=== PATIENT | female | born 1980 | race Two or more races ===

== ENCOUNTER 2019-12-17 16:22 | Inpatient (IN) | payer MEDICAID ==
[~2019-12-17] VITALS: Ht 154.9 cm; Wt 90.7 kg
[2019-12-17 19:22] VITALS: BP 127/82
--- NOTE | 2019-12-17 19:22 | NUR ---
RN MS ADMITTING NOTES RECEIVED PATIENT DIRECT TRANSFER FROM [facility] VIA [facility] WITH EMT, SAFELY TRANSFERRED TO ROOM 207-1, AWAKE ALERT AND ORIENTED X4 ,RESPIRATIONS EVEN AND UNLABORED WITH EQUAL RISE AND FALL OF CHEST, IV SITE TO LEFT HAND ,PER PATIENT HURTING HER, REMOVED NEW IV SITE INSERTED TO LEFT FA #22 G INTACT AND PATENT, OLD IV SITE REMOVED, NO S/S OF INFILTRATION, AT THIS TIME, PATIENT APPEARS COMFORTABLE, ORIENTED TO ROOM STAFF AND CALL LIGHT AND KEPT WITHIN REACH, SAFETY PRECAUTIONS IN PLACE, LOW BED AND LOCKED, ASSISTED TO RESTROOM AND BACK, BED ALARM IN PLACE, ORAL SUPPLIES PROVIDED, PER PATIENT DOES NOT HAVE AND SKIN ISSUES, BELONGINGS LIST COMPLETE. MD AWARE OF ADMISSION WILL FOLLOW UP WITH MD ORDERS, AT THIS TIME PATIENT REMAINS CALM AND COMFORTABLE WILL CONTINUE TO MONITOR.
[2019-12-17] MEDS ORDERED: IBUP-1957 PO (20:07)
[2019-12-17] MEDS ORDERED: Z GUARD REMEDY 2 OZ OINT TP PRN (20:30)
[2019-12-17] MEDS ORDERED: ACETAMINOPHEN 325 MG TABLET PO PRN (20:30)
[2019-12-17] MEDS ORDERED: MAGNESIUM HYDROXIDE 30 ML UDC PO PRN (20:30)
[2019-12-17] MEDS ORDERED: ZOLPIDEM TARTRATE 5 MG TABLET PO PRN (20:30)
[2019-12-17] MEDS: ONDANSETRON HCL/PF 4 MG/2 ML VIAL IVP PRN (20:47)
[2019-12-17] MEDS: KETOROLAC TROMETHAMINE INJ 30 MG/ML VIAL IV PRN (20:47)
--- NOTE | 2019-12-17 20:47 | NUR ---
rn ms notes patient complaint of pain to abdomen area, states 7/10 moaning, irritable, restless, requested for pain medication and zofran prn toradol given as ordered. prn zofran given as ordered. scanned medication didnt save. medications given as ordered, scanner switched.
[2019-12-17 21:59] LABS: CALCIUM, SERUM 8.1 mg/dL (8.5-10.1); CREATININE 0.5 mg/dL (0.6-1.3); POTASSIUM 3.8 mmol/L (3.5-5.1)
[2019-12-17 22:05] LABS: BASOPHILS % (AUTO) 0.3 % (0.0-2.0); HEMATOCRIT 34 % (33-45); LYMPHOCYTES # (AUTO) 2.1 /CMM (0.8-4.8); LYMPHOCYTES % (AUTO) 29.5 % (20.0-44.0); MEAN CORPUSCULAR HGB CONC 33 g/dl (31.0-36.0); MEAN CORPUSCULAR VOLUME 87 fL (82-100); MONOCYTES # (AUTO) 0.4 /CMM (0.1-1.30); MONOCYTES % (AUTO) 5.7 % (2.0-12.0); NEUTROPHILS # (AUTO) 4.5 /CMM (1.8-8.9); NEUTROPHILS % (AUTO) 62.5 % (43.0-81.0); PLATELET COUNT (AUTO) 269 /CMM (150-450); RED BLOOD CELL COUNT(AUTO) 3.84 MIL/uL (4.0-5.2); WHITE BLOOD COUNT (AUTO) 7.2 K/uL (4.3-11.0)
[2019-12-17] MEDS: IV NS 0.9% 1,000 ML IV PRN (22:26)
[2019-12-17] MEDS ORDERED: DEXTROSE 50%-WATER 50 ML DISP.SYRIN IV PRN (23:30)
[2019-12-17] MEDS: HYDROMORPHONE 1 MG/1 ML DISP.SYRIN IV PRN (23:31)
--- NOTE | 2019-12-17 23:31 | NUR ---
rn ms notes patient complained of pain to abdomen area 8/10 and headache vs assessed wnl, 137/78,87,18,96%. facial grimacing and moaning present offered dilaudid patient agreed. prn given as ordered will continue to monitor for effectiveness, lights dimmed, room remains quiet.call light kept within reach.
[2019-12-17] MEDS: PANTOPRAZOLE 40 MG VIAL IV SCH (23:32)
[2019-12-17] MEDS: GEMFIBROZIL 600 MG TABLET PO SCH (23:36)
[2019-12-17] MEDS: ENOXAPARIN SODIUM 40 MG/0.4 ML DISP.SYRIN SQ SCH (23:40)
[2019-12-17] MEDS: BLOOD SUGAR DIAGNOSTIC 1 EACH STRIP IN SCH (23:42)
[2019-12-17] MEDS: INSULIN REGULAR, HUMAN 100 UNIT/ML 3 ML VIAL SQ PRN (23:51)
[2019-12-18] MEDS: KETOROLAC TROMETHAMINE INJ 30 MG/ML VIAL IV PRN ×2 (02:48→17:49)
--- NOTE | 2019-12-18 02:50 | NUR ---
rn ms notes patient complained of pain 9/10 to abdomen area, requested for pain medication , toradol prn given as ordered given will continue to monitor for effectiveness, vs wnl.
[2019-12-18] MEDS: HYDROMORPHONE 1 MG/1 ML DISP.SYRIN IV PRN ×4 (04:35→20:08)
--- NOTE | 2019-12-18 04:38 | NUR ---
RN MS NOTES PATIENT COMPLAINED OF PAIN TO ABDOMEN AREA 01/30, STATES PAIN ,NOTED GRASPING SITE, AND MOANING, REQUESTED FOR PAIN MEDICATION, DILAUDID OFFERED PATIENT AGREED, VS WNL. PRN DILAUDID GIVEN ORDERED, WILL CONTINUE TO MONITOR FOR EFFECTIVENESS.
[2019-12-18] MEDS: INSULIN REGULAR, HUMAN 100 UNIT/ML 3 ML VIAL SQ PRN ×2 (05:31→13:39)
[2019-12-18] MEDS: BLOOD SUGAR DIAGNOSTIC 1 EACH STRIP IN SCH ×4 (05:31→23:39)
[2019-12-18] MEDS: IV NS 0.9% 1,000 ML IV PRN ×2 (06:12→17:42)
[2019-12-18] MEDS: ONDANSETRON HCL/PF 4 MG/2 ML VIAL IVP PRN ×3 (06:12→19:54)
--- NOTE | 2019-12-18 06:15 | NUR ---
rn ms notes pt complained of feeling nausea, requested for zofran prn given as ordered will continue to monitor for effectiveness
--- NOTE | 2019-12-18 06:50 | NUR ---
RN MS CLOSING NOTES PATIENT IN BED AWAKE ALERT AND ORIENTED X4 ,RESPIRATIONS EVEN AND UNLABORED WITH EQUAL RISE AND FALL OF CHEST, IV SITE INSERTED TO LEFT FA #22 G INTACT AND PATENT, NO S/S OF INFILTRATION, AT THIS TIME, PATIENT APPEARS COMFORTABLE, CALL LIGHT KEPT WITHIN REACH, SAFETY PRECAUTIONS IN PLACE, LOW BED AND LOCKED, ASSISTED TO RESTROOM AND BACK, BED ALARM IN PLACE, ORAL SUPPLIES PROVIDED, PER PATIENT DENIES SKIN ISSUES, AT THIS TIME PATIENT REMAINS CALM AND COMFORTABLE WILL CONTINUE TO MONITOR AND ENDORSE TO NEXT SHIFT, REMAINS NPO. ALL DUE MEDS GIVEN. MRSA SWAB DONE, PAIN MEDICATION EFFECTIVE.
[2019-12-18 06:56] LABS: BASOPHILS % (AUTO) 0.5 % (0.0-2.0); EOSINOPHILS % (AUTO) 2.9 % (0.0-6.0); HEMATOCRIT 32 % (33-45); HEMOGLOBIN 10.4 g/dL (11.5-14.8); LYMPHOCYTES # (AUTO) 1.9 /CMM (0.8-4.8); LYMPHOCYTES % (AUTO) 37.7 % (20.0-44.0); MEAN CORPUSCULAR HGB CONC 33 g/dl (31.0-36.0); MEAN CORPUSCULAR VOLUME 87 fL (82-100); MONOCYTES # (AUTO) 0.4 /CMM (0.1-1.30); MONOCYTES % (AUTO) 7.7 % (2.0-12.0); NEUTROPHILS # (AUTO) 2.6 /CMM (1.8-8.9); NEUTROPHILS % (AUTO) 51.2 % (43.0-81.0); PLATELET COUNT (AUTO) 259 /CMM (150-450); RED BLOOD CELL COUNT(AUTO) 3.64 MIL/uL (4.0-5.2); WHITE BLOOD COUNT (AUTO) 5.1 K/uL (4.3-11.0)
[2019-12-18 07:32] LABS: CALCIUM, SERUM 7.5 mg/dL (8.5-10.1); CREATININE 0.5 mg/dL (0.6-1.3); MAGNESIUM 1.7 mg/dL (1.8-2.4); PHOSPHORUS 2.7 mg/dL (2.5-4.9); POTASSIUM 3.6 mmol/L (3.5-5.1)
--- NOTE | 2019-12-18 07:42 | NUR ---
RN NOTES RECEIVED PT ASLEEP, EASILY AROUSED, AO X4. PT TOLERATING RA, WITH NO ACUTE RESPIRATORY DISTRESS NOTED. PT REPORTED 6/10 PAIN WHEN ASKED. IVF NS AT 100ML/HR TO LFA G22, INTACT AND FLUID INFUSING WELL. PT KEPT COMFORTABLE. CALL LIGHT KEPT WITHIN REACH. PT'S BED IN LOWEST, LOCKED POSITION WITH SRX3. WILL CONTINUE PLAN OF CARE.
[2019-12-18] MEDS: HYDROCODONE/APAP 5/325MG 1 EACH TABLET PO PRN (07:57)
[2019-12-18 08:00] VITALS: BP 128/74
[2019-12-18] MEDS: GEMFIBROZIL 600 MG TABLET PO SCH ×2 (08:09→20:07)
--- NOTE | 2019-12-18 08:09 | NUR ---
MS RN NOTES PT REPORTED 6/10 PAIN SCALE, NORCO OFFERED AND PT OKAY WITH IT. PT TOOK NORCO AND GEMFIBROZIL WITH ONLY SIPS OF WATER. PT TOLERATED IT. WILL CONTINUE TO MONITOR.
[2019-12-18] MEDS: Magnesium 1GM/D5W 100ML PREMIX 100 ML IV SCH ×2 (10:10→11:15)
[2019-12-18 16:15] VITALS: BP 126/73
--- NOTE | 2019-12-18 18:54 | NUR ---
MS RN NOTES PT REMAINS IN BED, INTERMITTENTLY DOZING OFF, EASILY AROUSED, AO X4. PT TOLERATING RA, WITH NO ACUTE RESPIRATORY DISTRESS NOTED. ON PAIN MANAGEMENT REGIMEN AND IVF HYDRATION. IVF NS AT 100ML/HR TO LFA G22, INTACT AND FLUID INFUSING WELL. PT KEPT COMFORTABLE. ALL NEEDS AND CARE ATTENDED. CALL LIGHT KEPT WITHIN REACH. PT'S BED IN LOWEST, LOCKED POSITION WITH SRX3. WILL ENDORSE TO INCOMING NIGHT NURSE FOR ALESSANDRA.
--- NOTE | 2019-12-18 19:00 | NUR ---
RN medsurg opening notes Receive Pt from morning nurse. Pt is awake and laying in bed comfortably. Pt is alert and orientedX4. Respiration is normal. No SOB. No S/S of distress noted. IV sites at LFA# 22 is clean, intact and infusing well NS@ 100ml/hr. Pt status is NPO. Pt verbalize understanding. Pt is able to ambulate with a steady gait. Safety precautions is maintained. Bed at low position, brakes locked, side railsupX2 and call light is within reach. Will continue to monitor.
--- NOTE | 2019-12-18 19:54 | NUR ---
JOCELIN mcdonaldsuambrocio notes Pt is complaining of nausea, no vomiting (no emesis) and requesting zofran. Administered zofran 4 mg/2 ml as ordered for nausea. Safety precautions is maintained. Will continue to monitor.
[2019-12-18 20:00] VITALS: BP 117/86
--- NOTE | 2019-12-18 20:08 | NUR ---
RN medsurg notes Pt is complaining of pain on her abdomen and requesting pain meds. Administered dilaudid 1 mg/1 ml as ordered for pain per pt request. VS is stable. Safety precautions is maintained. Will continue to monitor.
[2019-12-18] MEDS: PANTOPRAZOLE 40 MG VIAL IV SCH (22:00)
[2019-12-18] MEDS: ENOXAPARIN SODIUM 40 MG/0.4 ML DISP.SYRIN SQ SCH (22:01)
[2019-12-19] MEDS: HYDROMORPHONE 1 MG/1 ML DISP.SYRIN IV PRN ×3 (01:34→19:59)
[2019-12-19] MEDS: IV NS 0.9% 1,000 ML IV PRN ×3 (03:16→23:21)
[2019-12-19] MEDS: BLOOD SUGAR DIAGNOSTIC 1 EACH STRIP IN SCH ×4 (05:08→23:28)
--- NOTE | 2019-12-19 07:00 | NUR ---
RN medsurg closing notes Pt is resting in bed comfortably. Pt is alert and orientedX4. Respiration is normal. No SOB. No S/S of distress noted. VS is stable. Afebrile. Routine meds were given as ordered including pain management. IV sites at LFA# 22 is clean, intact and infusing well NS@ 100ml/hr. Pt status is NPO. Safety precautions is maintained. Bed at low position, brakes locked, side railsupX2 and call light is within reach. Will endorse to morning nurse for ALESSANDRA.
[2019-12-19 07:02] LABS: BASOPHILS % (AUTO) 0.6 % (0.0-2.0); EOSINOPHILS % (AUTO) 3.3 % (0.0-6.0); HEMATOCRIT 34 % (33-45); HEMOGLOBIN 11.2 g/dL (11.5-14.8); LYMPHOCYTES # (AUTO) 2.1 /CMM (0.8-4.8); MEAN CORPUSCULAR HGB CONC 33 g/dl (31.0-36.0); MEAN CORPUSCULAR VOLUME 87 fL (82-100); MONOCYTES # (AUTO) 0.5 /CMM (0.1-1.30); MONOCYTES % (AUTO) 7.6 % (2.0-12.0); NEUTROPHILS # (AUTO) 3.3 /CMM (1.8-8.9); NEUTROPHILS % (AUTO) 54.5 % (43.0-81.0); PLATELET COUNT (AUTO) 296 /CMM (150-450); RED BLOOD CELL COUNT(AUTO) 3.91 MIL/uL (4.0-5.2); WHITE BLOOD COUNT (AUTO) 6.1 K/uL (4.3-11.0)
[2019-12-19 07:22] LABS: CALCIUM, SERUM 7.8 mg/dL (8.5-10.1); CREATININE 0.4 mg/dL (0.6-1.3); MAGNESIUM 1.9 mg/dL (1.8-2.4); POTASSIUM 3.6 mmol/L (3.5-5.1)
--- NOTE | 2019-12-19 07:50 | NUR ---
MS RN OPENING NOTE RECEIVED PATIENT IN BED RESTING COMFORTABLY. PATIENT IN NO ACUTE DISTRESS. NO SOB NOTED. PATIENT BREATHING IS EVEN AND UNLABORED. PATIENT HOB IS ELEVATED. SAFETY PRECAUTIONS IN PLACE. PATIENT BED ALARM IS ON. PATIENT BED IS LOCKED AND IN LOWEST POSITION. CALL LIGHT WITHIN REACH. WILL CONTINUE TO MONITOR.
[2019-12-19] MEDS: KETOROLAC TROMETHAMINE INJ 30 MG/ML VIAL IV PRN ×3 (07:58→23:28)
[2019-12-19 08:00] VITALS: BP 116/83
[2019-12-19] MEDS: GEMFIBROZIL 600 MG TABLET PO SCH ×2 (08:02→20:02)
--- NOTE | 2019-12-19 08:17 | NUR ---
MS RN NOTE PER TIERRA MOBLEY PATIENT OKAY TO TAKE GEMFIBROZIL PO WITH SMALL SIPS OF WATER. PATIENT COMPLAINS OF CONSTIPATION, INFORMED LEANDRA IRON HANDLER. PER LEANDRA ORDER FOR DULCOLAX 10MG PO ONE TIME DOSE WITH SMALL SIP OF WATER TO SWALLOW MEDICATION.
[2019-12-19] MEDS ORDERED: BISACODYL (5 MG) 5 MG TABLET.DR PO ONE (08:30)
--- NOTE | 2019-12-19 12:01 | NUR ---
MS RN NOTE PATIENT BLOOD SUGAR 124. NO INSULIN COVERAGE NEEDED PER PROTOCOL.
--- NOTE | 2019-12-19 12:23 | NUR ---
MS RN NOTE PATIENT STATING SHE IS NAUSEOUS. REQUESTING ZOFRAN. ZOFRAN PRN ORDERED TO BE GIVEN.
[2019-12-19] MEDS: ONDANSETRON HCL/PF 4 MG/2 ML VIAL IVP PRN ×2 (12:29→19:58)
--- NOTE | 2019-12-19 17:34 | NUR ---
MS RN NOTE PATIENT BLOOD SUGAR 107. NO INSULIN COVERAGE NEEDED PER PROTOCOL.
[2019-12-19 18:43] VITALS: BP_SYST 131; BP_SYST 142; BP_DIAS 74; BP_DIAS 80
--- NOTE | 2019-12-19 19:09 | NUR ---
MS RN CLOSING NOTE PATIENT IN BED RESTING COMFORTABLY. PATIENT IN NO ACUTE DISTRESS. NO SOB NOTED. PATIENT BREATHING IS EVEN AND UNLABORED. IV PATENT AND INTACT. PATIENT KEPT CLEAN, DRY, AND COMFORTABLE THROUGHOUT SHIFT. NEEDS AND CONCERNS ADDRESSED. SAFETY PRECAUTIONS IN PLACE. PATIENT BED ALARM IS ON. PATIENT BED IS LOCKED AND IN LOWEST POSITION. CALL LIGHT WITHIN REACH. WILL ENDORSE CARE TO PM SHIFT FOR ALESSANDRA.
--- NOTE | 2019-12-19 19:30 | NUR ---
ms rn opening note received patient in bed. a/ox4. tolerating room air. respirations are even and unlabored. no s/s sob noted. c/o pain in abdomen and back, informed will provide medication once received report for all patient and milieu coordinator obtains vital signs. iv access in LFA#22 running NS@125ml/hr. bed is low and locked, hob elevated in semi fowlers, side rails up x2, call light within reach. will continue to monitor.
[2019-12-19 20:00] VITALS: BP 135/80
--- NOTE | 2019-12-19 21:10 | NUR ---
ms rn note administered lopid 600mg with small sips of water as instructed by Dr.Dimitry Winkler. administered PRN diluadid 1mg for pain 8/10 in abdomen and back. judahan given d/t patient request as she states she gets nauseous with diluadid. will continue to monitor.
[2019-12-19] MEDS: PANTOPRAZOLE 40 MG VIAL IV SCH (22:01)
[2019-12-19] MEDS: ENOXAPARIN SODIUM 40 MG/0.4 ML DISP.SYRIN SQ SCH (22:07)
[2019-12-20] MEDS: BLOOD SUGAR DIAGNOSTIC 1 EACH STRIP IN SCH ×4 (05:51→23:07)
--- NOTE | 2019-12-20 05:53 | NUR ---
ms rn note Called personal lines underwriter MD Shannon Vargas to inform her that the patient is feeling very anxious and is crying, requesting ativan iv d/t patient is npo status. telephone order ativan 1mg one time now. order read back noted and carried out.
[2019-12-20] MEDS ORDERED: LORAZEPAM INJ 2 MG/ML VIAL IVP ONE (06:00)
[2019-12-20 07:11] LABS: BASOPHILS % (AUTO) 0.7 % (0.0-2.0); EOSINOPHILS % (AUTO) 3.3 % (0.0-6.0); HEMATOCRIT 38 % (33-45); HEMOGLOBIN 12.4 g/dL (11.5-14.8); LYMPHOCYTES # (AUTO) 2.1 /CMM (0.8-4.8); LYMPHOCYTES % (AUTO) 30.2 % (20.0-44.0); MEAN CORPUSCULAR HGB CONC 33 g/dl (31.0-36.0); MEAN CORPUSCULAR VOLUME 86 fL (82-100); MONOCYTES # (AUTO) 0.6 /CMM (0.1-1.30); MONOCYTES % (AUTO) 8.3 % (2.0-12.0); NEUTROPHILS # (AUTO) 3.9 /CMM (1.8-8.9); NEUTROPHILS % (AUTO) 57.5 % (43.0-81.0); PLATELET COUNT (AUTO) 350 /CMM (150-450); RED BLOOD CELL COUNT(AUTO) 4.41 MIL/uL (4.0-5.2); WHITE BLOOD COUNT (AUTO) 6.8 K/uL (4.3-11.0)
[2019-12-20 07:20] LABS: CALCIUM, SERUM 8.4 mg/dL (8.5-10.1); CREATININE 0.5 mg/dL (0.6-1.3); POTASSIUM 3.5 mmol/L (3.5-5.1)
--- NOTE | 2019-12-20 07:30 | NUR ---
ms rn closing note patient in bed. a/ox4. tolerating room air. no resp distress. managed pain with Dilaudid and Toradol. iv access maintained in LAC#22 running NS@125ml/hr. bed remains low and locked, hob elevated in semi fowlers, side rails up x2, call light within reach. will endorse to next shift
--- NOTE | 2019-12-20 07:39 | NUR ---
MS RN OPENING NOTE RECEIVED PATIENT IN BED SLEEPING, RESTING COMFORTABLY. PATIENT IN NO ACUTE DISTRESS. NO SOB NOTED. PATIENT BREATHING IS EVEN AND UNLABORED. PATIENT HOB IS ELEVATED. SAFETY PRECAUTIONS IN PLACE. PATIENT BED ALARM IS ON. PATIENT BED IS LOCKED AND IN LOWEST POSITION. CALL LIGHT WITHIN REACH. WILL CONTINUE TO MONITOR.
[2019-12-20 08:00] VITALS: BP 125/81
--- NOTE | 2019-12-20 08:27 | NUR ---
MS RN NOTE SPOKE WITH JANIYA MOBLEY NP. PER LEANDRA PATIENT WILL GO FOR CT ABDOMEN WITHOUT CONTRAST AND ORDERS TO PLACE PATIENT ON CLEAR LIQUID DIET STARTING FOR LUNCH TIME.
[2019-12-20] MEDS: GEMFIBROZIL 600 MG TABLET PO SCH ×2 (08:52→20:37)
[2019-12-20] MEDS: KETOROLAC TROMETHAMINE INJ 30 MG/ML VIAL IV PRN ×2 (08:52→15:56)
--- NOTE | 2019-12-20 09:40 | NUR ---
MS RN NOTE FORTUNATO FROM [facility] CALLED TO INFORMED THAT CT ABDOMEN WITHOUT CONTRAST WERE RESULTED. I INFORMED JANIYA MOBLEY NP OF RESULTS. LEANDRA MADE AWARE, PER LEANDRA HE PLACED ORDERS FOR US KIDNEY.
--- NOTE | 2019-12-20 11:25 | NUR ---
MS RN NOTE PATIENT BLOOD SUGAR IS 124. NO INSULIN COVERAGE NEEDED PER PROTOCOL.
[2019-12-20] MEDS: IV NS 0.9% 1,000 ML IV PRN ×2 (11:33→21:56)
[2019-12-20] MEDS: ONDANSETRON HCL/PF 4 MG/2 ML VIAL IVP PRN ×2 (11:35→18:18)
[2019-12-20] MEDS: HYDROMORPHONE 1 MG/1 ML DISP.SYRIN IV PRN ×3 (11:39→21:23)
--- NOTE | 2019-12-20 11:39 | NUR ---
MS RN NOTE PATIENT COMPLAINS OF 9/10 ABDOMINAL PAIN AND NAUSEA. PATIENT REQUESTING DILAUDID AND ZOFRAN. DILAUDID PRN AND ZOFRAN PRN GIVEN ORDERED. EXPLAINED ALL DUE MEDS.
--- NOTE | 2019-12-20 11:55 | NUR ---
MS RN NOTE RESULTS FOR KIDNEY ULTRASOUND COMPLETED. INFORMED AND MADE AWARE RESULTS TO SUNNY MOBLEY NP. LEANDRA MADE AWARE, NO NEW ORDERS AT THIS TIME.
--- NOTE | 2019-12-20 12:22 | NUR ---
MS RN NOTE INFORMED FARHAD MOBLEY OF PATIENTS TOLERANCE TO LUNCH. MADE AWARE TO LEANDRA THAT PATIENT HAD JUST FINISHED LUNCH. PATIENT STATED THAT SHE TOLERATED LUNCH FOR ABOUT 10 MINUTES. AFTER 10 MINUTES PATIENT HAD SHARP ABDOMINAL PAIN THAT HAS ALREADY PASSED BUT STATES " THE PAIN COMES AND GOES". LEANDRA MADE AWARE. PER FARHAD PATIENT CAN MAINTAIN CLEAR LIQUID DIET FOR DINNER AND EAT TOLERATED. AND PER FARHAD HE WILL CHECK LIPASE TONIGHT. NO NEW ORDERS AT THIS TIME.
--- NOTE | 2019-12-20 17:23 | NUR ---
MS RN NOTE PATIENT BLOOD SUGAR IS 113. NO INSULIN COVERAGE NEEDED PER PROTOCOL.
[2019-12-20 18:38] VITALS: BP 129/85
--- NOTE | 2019-12-20 19:35 | NUR ---
MS/RN OPENING NOTES: RECEIVED PATIENT IN BED SLEEPING, RESTING COMFORTABLY. A/OX4. VERBALLY RESPONSIVE AND ABLE TO MAKE NEEDS KNOWN. PATIENT IN NO ACUTE DISTRESS. NO SOB NOTED. PATIENT BREATHING IS EVEN AND UNLABORED. PATIENT HOB IS ELEVATED. IV ON THE LEFT AC #22G NS @125 MLS/HR. SAFETY PRECAUTIONS IN PLACE. PATIENT BED ALARM IS ON. PATIENT BED IS LOCKED AND IN LOWEST POSITION. CALL LIGHT WITHIN REACH. WILL CONTINUE TO MONITOR.
[2019-12-20 20:00] VITALS: BP 130/81
--- NOTE | 2019-12-20 21:23 | NUR ---
MS/RN NOTES: PATIENT COMPLAINED OF PAIN 7 OUT OF 10. REQUESTED DILAUDID. ADMINISTERED DILAUDID 1MG ORDERED Q3HRS. VSS. BP: 118/80 HR: 78. WILL CONTINUE TO MONITOR AND REASSESS. Addendum: 12/21/19 at 0712 by LINDA BROOKS RN BP:128/76 HR: 76
[2019-12-20] MEDS: PANTOPRAZOLE 40 MG VIAL IV SCH (22:57)
[2019-12-20] MEDS: ENOXAPARIN SODIUM 40 MG/0.4 ML DISP.SYRIN SQ SCH (22:57)
[2019-12-20] MEDS: INSULIN REGULAR, HUMAN 100 UNIT/ML 3 ML VIAL SQ PRN (23:07)
[2019-12-21] MEDS: IV NS 0.9% 1,000 ML IV PRN ×2 (05:56→16:49)
[2019-12-21] MEDS: KETOROLAC TROMETHAMINE INJ 30 MG/ML VIAL IV PRN ×2 (06:00→16:55)
--- NOTE | 2019-12-21 06:00 | NUR ---
MS/RN NOTES: PATIENT COMPLAINED OF PAIN 8-9 OUT OF 10. REQUESTED TORADOL. ADMINISTERED TORADOL 15MG ORDERED Q6HRS. VSS. BP: 118/80 HR: 78. WILL CONTINUE TO MONITOR AND REASSESS.
[2019-12-21] MEDS: BLOOD SUGAR DIAGNOSTIC 1 EACH STRIP IN SCH ×4 (06:06→23:03)
[2019-12-21] MEDS: INSULIN REGULAR, HUMAN 100 UNIT/ML 3 ML VIAL SQ PRN ×2 (06:07→23:06)
--- NOTE | 2019-12-21 07:00 | NUR ---
MS/RN CLOSING NOTES: PATIENT REMAINS IN BED SLEEPING, RESTING COMFORTABLY. NO SIGNIFICANT CHANGES IN CONDITION. PATIENT IN NO ACUTE DISTRESS. NO SOB NOTED. PATIENT BREATHING IS EVEN AND UNLABORED. PATIENT HOB IS ELEVATED. PAIN MANAGED THROUGHOUT THE NIGHT. IV ON THE LEFT AC INTACT AND PATENT #22G NS @125 MLS/HR. BS CHECK FOR AC IS 117. NO REG INSULIN GIVEN PER SLIDING SCALE. SAFETY PRECAUTIONS IN PLACE. PATIENT BED ALARM IS ON. PATIENT BED IS LOCKED AND IN LOWEST POSITION. CALL LIGHT WITHIN REACH. WILL ENDORSE TO DAY SHIFT FOR ALESSANDRA.
[2019-12-21 07:03] LABS: BASOPHILS % (AUTO) 0.7 % (0.0-2.0); EOSINOPHILS % (AUTO) 3.5 % (0.0-6.0); HEMATOCRIT 38 % (33-45); HEMOGLOBIN 12.4 g/dL (11.5-14.8); LYMPHOCYTES # (AUTO) 1.9 /CMM (0.8-4.8); MEAN CORPUSCULAR HGB CONC 33 g/dl (31.0-36.0); MEAN CORPUSCULAR VOLUME 87 fL (82-100); MONOCYTES # (AUTO) 0.5 /CMM (0.1-1.30); MONOCYTES % (AUTO) 7.1 % (2.0-12.0); NEUTROPHILS # (AUTO) 3.9 /CMM (1.8-8.9); NEUTROPHILS % (AUTO) 59.7 % (43.0-81.0); PLATELET COUNT (AUTO) 344 /CMM (150-450); RED BLOOD CELL COUNT(AUTO) 4.37 MIL/uL (4.0-5.2); WHITE BLOOD COUNT (AUTO) 6.5 K/uL (4.3-11.0)
--- NOTE | 2019-12-21 07:30 | NUR ---
RN OPENING NOTES RECEIVED PATIENT IN BED RESTING. NOT IN ANY FORM OF DISTRESS. NO SOB. DENIED PAIN OR DISCOMFORT AT THIS TIME. IV ACCES INTACT AND PATENT. SAFETY MEASURES IN PLACE. BED IN LOW/LOCKED POSITION. SIDERAILS UPX2,CALL LIGHT IN REACH. WILL MONITOR ACCORDINGLY.
[2019-12-21 07:34] LABS: CALCIUM, SERUM 8.1 mg/dL (8.5-10.1); CREATININE 0.5 mg/dL (0.6-1.3); POTASSIUM 3.6 mmol/L (3.5-5.1)
[2019-12-21 08:00] VITALS: BP 134/75
[2019-12-21] MEDS: GEMFIBROZIL 600 MG TABLET PO SCH ×2 (08:17→21:21)
[2019-12-21] MEDS: HYDROMORPHONE 1 MG/1 ML DISP.SYRIN IV PRN (08:57)
[2019-12-21] MEDS: ONDANSETRON HCL/PF 4 MG/2 ML VIAL IVP PRN (08:57)
[2019-12-21] MEDS: LORAZEPAM INJ 2 MG/ML VIAL IV PRN ×2 (10:34→19:52)
[2019-12-21 16:00] VITALS: BP 124/85
--- NOTE | 2019-12-21 18:39 | NUR ---
RN CLOSING NOTES PATIENT IN STABLE CONDITION. ALL NEEDS ATTENDED AND PROVIDED. ALL DUE MEDS GIVEN ORDERED. ASSISTED WITH ADLS. KEPT PATIENT SAFE AND COMFORTABLE. BED IN LOW/LOCKED POSITION. SIDERAILS UPX2,CALL LIGHT IN REACH. WILL ENDORSED TO NIGHT RN ACCORDINGLY
--- NOTE | 2019-12-21 19:00 | NUR ---
MS/RN OPENING NOTES: RECEIVED PATIENT IN BED RESTING, FEELING ANXIOUS. A/OX4. VERBALLY RESPONSIVE AND ABLE TO MAKE NEEDS KNOWN. PATIENT IN NO ACUTE DISTRESS. NO SOB NOTED. PATIENT BREATHING IS EVEN AND UNLABORED. PATIENT HOB IS ELEVATED. IV ON THE LEFT AC #22G NS @125 MLS/HR. SAFETY PRECAUTIONS IN PLACE. PATIENT BED ALARM IS ON. PATIENT BED IS LOCKED AND IN LOWEST POSITION. CALL LIGHT WITHIN REACH. WILL CONTINUE TO MONITOR THROUGHOUT THE SHIFT.
--- NOTE | 2019-12-21 19:55 | NUR ---
MS/RN NOTES: PT IS HAVING ANXIETY. REQUESTED ATIVAN. ADMINISTERED ATIVAN 1MG ORDERED. VSS. BP: 131/79 HR:72. WILL CONTINUE TO MONITOR ACCORDINGLY.
[2019-12-21 20:00] VITALS: BP 131/79
[2019-12-21 20:19] VITALS: BP 131/79
[2019-12-21] MEDS: PANTOPRAZOLE 40 MG VIAL IV SCH (22:55)
[2019-12-21] MEDS: ENOXAPARIN SODIUM 40 MG/0.4 ML DISP.SYRIN SQ SCH (22:56)
--- NOTE | 2019-12-22 01:20 | NUR ---
MS/RN NOTES: PT FEELS ANXIOUS, STATES THAT SHE FEELS UNCOMFORTABLE BECAUSE SHE HASN'T SHOWERED IN A LONG TIME. ALLOWED PT TO SHOWER. AMBULATORY WITH STEADY GAIT. STANDBY ASSIST AT ALL TIMES. WILL KEEP MONITORING PT FOR SAFETY.
[2019-12-22] MEDS: IV NS 0.9% 1,000 ML IV PRN ×3 (02:10→20:46)
[2019-12-22] MEDS: LORAZEPAM INJ 2 MG/ML VIAL IV PRN ×2 (02:11→21:37)
--- NOTE | 2019-12-22 02:11 | NUR ---
MS/RN NOTES: PT IS HAVING ANXIETY AGAIN. REQUESTED ATIVAN. ADMINISTERED ATIVAN 1MG ORDERED. VSS. BP: 122/72 HR:82. WILL CONTINUE TO MONITOR ACCORDINGLY.
[2019-12-22] MEDS: INSULIN REGULAR, HUMAN 100 UNIT/ML 3 ML VIAL SQ PRN ×4 (06:08→22:51)
[2019-12-22] MEDS: BLOOD SUGAR DIAGNOSTIC 1 EACH STRIP IN SCH ×4 (06:08→23:39)
--- NOTE | 2019-12-22 07:21 | NUR ---
MS/RN CLOSING NOTES: PATIENT REMAINS IN BED SLEEPING, RESTING COMFORTABLY. NO SIGNIFICANT CHANGES IN CONDITION. PATIENT IN NO ACUTE DISTRESS. NO SOB NOTED. PATIENT BREATHING IS EVEN AND UNLABORED. PATIENT HOB IS ELEVATED. PAIN MANAGED THROUGHOUT THE NIGHT. IV ON THE LEFT AC INTACT AND PATENT #22G NS @125 MLS/HR. BS CHECK FOR AC IS 114. NO REG INSULIN GIVEN PER SLIDING SCALE. SAFETY PRECAUTIONS IN PLACE. PATIENT BED ALARM IS ON. PATIENT BED IS LOCKED AND IN LOWEST POSITION. CALL LIGHT WITHIN REACH. WILL ENDORSE TO DAY SHIFT FOR ALESSANDRA.
[2019-12-22 07:28] LABS: CALCIUM, SERUM 8.4 mg/dL (8.5-10.1); CREATININE 0.4 mg/dL (0.6-1.3); POTASSIUM 3.5 mmol/L (3.5-5.1)
--- NOTE | 2019-12-22 07:30 | NUR ---
MS RN NOTES RECEIVED PATIENT IN BED, ALERT AND AWAKE ORIENTED X4. HOB ELEVATED. NO SOB. LEFT AC # 22 INTACT AND PATENT INFUSING NS 0.9 % AT 125ML/HR BG WELL. DENIES ANY C/O PAIN NOR DISCOMFORT AT THIS TIME. DENIES ANY C/O ANXIETY. BED IN LOWEST POSITION, LOCKED. CALL LIGHT WITHIN REACH.
[2019-12-22 07:33] LABS: BASOPHILS # (AUTO) 0.1 /CMM (0.0-0.2); BASOPHILS % (AUTO) 0.9 % (0.0-2.0); EOSINOPHILS % (AUTO) 3.7 % (0.0-6.0); HEMATOCRIT 38 % (33-45); HEMOGLOBIN 12.4 g/dL (11.5-14.8); LYMPHOCYTES # (AUTO) 2.3 /CMM (0.8-4.8); LYMPHOCYTES % (AUTO) 32.8 % (20.0-44.0); MEAN CORPUSCULAR HGB CONC 33 g/dl (31.0-36.0); MEAN CORPUSCULAR VOLUME 86 fL (82-100); MONOCYTES # (AUTO) 0.4 /CMM (0.1-1.30); MONOCYTES % (AUTO) 6.4 % (2.0-12.0); NEUTROPHILS # (AUTO) 3.9 /CMM (1.8-8.9); NEUTROPHILS % (AUTO) 56.2 % (43.0-81.0); PLATELET COUNT (AUTO) 346 /CMM (150-450); RED BLOOD CELL COUNT(AUTO) 4.39 MIL/uL (4.0-5.2); WHITE BLOOD COUNT (AUTO) 6.9 K/uL (4.3-11.0)
[2019-12-22 08:00] VITALS: BP 138/90
[2019-12-22] MEDS: ONDANSETRON HCL/PF 4 MG/2 ML VIAL IVP PRN ×4 (08:10→23:38)
[2019-12-22] MEDS: HYDROMORPHONE 1 MG/1 ML DISP.SYRIN IV PRN ×3 (08:11→23:01)
[2019-12-22] MEDS: GEMFIBROZIL 600 MG TABLET PO SCH ×2 (08:31→20:45)
[2019-12-22] MEDS ORDERED: ONDANSETRON HCL/PF 4 MG/2 ML VIAL IV ONE ×2 (13:00)
[2019-12-22] MEDS: KETOROLAC TROMETHAMINE INJ 30 MG/ML VIAL IV PRN (14:54)
[2019-12-22 18:36] VITALS: BP 113/76
--- NOTE | 2019-12-22 18:37 | NUR ---
MS RN NOTES PATIENT RESTING COMFORTABLY IN BED PLAYING WORD SEARCH GAME. HOB ELEVATED. NO S/S OF RESPIRATORY DISTRESS. BG REGULAR DIET WELL DURING DINNER TIME WITHOUT PAIN NOR DISCOMFORT. LEFT AC # 22 INTACT AND PATENT INFUSING NS 0.9 % AT 125ML/HR BG WELL. BED IN LOWEST POSITION, LOCKED. CALL LIGHT WITHIN REACH. ABLE TO VERBALIZE NEEDS. IN NO APPARENT DISTRESS.
[2019-12-22 19:44] VITALS: BP 119/73
--- NOTE | 2019-12-22 19:45 | NUR ---
RECEIVED IN BED A/Ox3 SPEECH CLEAR MOVING ALL EXTREMITIES DENIES PAIN WATCHING TV IV SITE W/O REDNESS OR EDEMA
[2019-12-22 20:10] VITALS: BP 119/73
[2019-12-22] MEDS: ENOXAPARIN SODIUM 40 MG/0.4 ML DISP.SYRIN SQ SCH (22:53)
[2019-12-22] MEDS: PANTOPRAZOLE 40 MG VIAL IV SCH (23:02)
[2019-12-23] MEDS: IV NS 0.9% 1,000 ML IV PRN (04:12)
[2019-12-23] MEDS: BLOOD SUGAR DIAGNOSTIC 1 EACH STRIP IN SCH ×2 (06:22→12:26)
[2019-12-23] MEDS: HYDROCODONE/APAP 5/325MG 1 EACH TABLET PO PRN (06:25)
[2019-12-23 08:00] VITALS: BP 124/78
--- NOTE | 2019-12-23 08:00 | NUR ---
rn notes Received patient in the bed eating. a/o x4, was complaining of pain epigastric area 6/10 per pain scale, v/s taken stable, administered scheduled medication, infusing NS at 125 mg/ml iv push for left ac area, patient ambulatory. call light within to reach, continued monitoring.
[2019-12-23] MEDS: GEMFIBROZIL 600 MG TABLET PO SCH (08:45)
--- NOTE | 2019-12-23 08:46 | NUR ---
RN notes administered Tylenol 650 mg po prn for pain 10 per patient request.
[2019-12-23 08:57] LABS: BASOPHILS % (AUTO) 0.8 % (0.0-2.0); EOSINOPHILS % (AUTO) 2.8 % (0.0-6.0); HEMATOCRIT 38 % (33-45); HEMOGLOBIN 12.6 g/dL (11.5-14.8); LYMPHOCYTES # (AUTO) 1.9 /CMM (0.8-4.8); LYMPHOCYTES % (AUTO) 30.9 % (20.0-44.0); MEAN CORPUSCULAR HGB CONC 33 g/dl (31.0-36.0); MEAN CORPUSCULAR VOLUME 86 fL (82-100); MONOCYTES # (AUTO) 0.4 /CMM (0.1-1.30); MONOCYTES % (AUTO) 6.9 % (2.0-12.0); NEUTROPHILS # (AUTO) 3.7 /CMM (1.8-8.9); NEUTROPHILS % (AUTO) 58.6 % (43.0-81.0); PLATELET COUNT (AUTO) 331 /CMM (150-450); RED BLOOD CELL COUNT(AUTO) 4.45 MIL/uL (4.0-5.2); WHITE BLOOD COUNT (AUTO) 6.3 K/uL (4.3-11.0)
[2019-12-23 09:14] LABS: CALCIUM, SERUM 8.1 mg/dL (8.5-10.1); CREATININE 0.4 mg/dL (0.6-1.3); POTASSIUM 3.2 mmol/L (3.5-5.1)
--- NOTE | 2019-12-23 09:30 | NUR ---
rn notes patient stable willing to go home self care per hospitalist order.
[2019-12-23] MEDS ORDERED: LORA-259 PO (11:45)
[2019-12-23] MEDS ORDERED: ONDA4TAB5 PO (11:45)
[2019-12-23] MEDS ORDERED: HYDR-4384 PO (11:45)
[2019-12-23] MEDS ORDERED: Blood Sugar Diagnostic IN (12:02)
[2019-12-23] MEDS ORDERED: INSU100V28 SQ (12:02)
[2019-12-23] MEDS: INSULIN REGULAR, HUMAN 100 UNIT/ML 3 ML VIAL SQ PRN (12:59)
--- NOTE | 2019-12-23 14:20 | NUR ---
rn residential notes PATIENT STABLE, V/S WNL, REFUSED PAIN, BS167 MG/DL COVERAGE GIVEN. MED RECONCILIATION AND DISCHARGE ORDER REVIEWED AND EXPLAINED TO PATIENT. PATIENT VERBALIZED UNDERSTANDING. BELONGING WITH THE PATIENT. PATIENT SIGN PAPERWORK. PRESCRIPTION HANDED TO THE PATIENT .Patient was started on Accu-Cheks with regular insulin sliding scale, continue at home. Prescription for glucometer, insulin, lancets given to the patient Follow-up with PCP outpatient regarding further management of DM.ESCORTED PATIENT TO THE LOBBY FOR SAFETY. PATIENT WEB SIZER BY SISTER.
== END 2019-12-23 14:30 | disposition home or self-care (01) | DRG 282 ==
LOC: MEDSG2 19:12
PROVIDERS: ADMIT Nurse Practitioner Acute Care; ATTEND Nurse Practitioner Acute Care
DX: K85.90 Acute pancreatitis without necrosis or infection, unspecified (principal); D68.59 Other primary thrombophilia; E87.1 Hypo-osmolality and hyponatremia; E66.9 Obesity, unspecified; K76.0 Fatty (change of) liver, not elsewhere classified; K29.70 Gastritis, unspecified, without bleeding; E11.65 Type 2 diabetes mellitus with hyperglycemia; D64.9 Anemia, unspecified; E78.5 Hyperlipidemia, unspecified; N83.202 Unspecified ovarian cyst, left side; N20.0 Calculus of kidney; Z98.890 Other specified postprocedural states
CPT/HCPCS: 36415; 76770-TC; 76856-TC; 80048-TC; 80061-TC; 82962-TC; 83690-TC; 83735-TC; 84100-TC; 84478-TC; 84703-TC; 85025-TC; 87081-TC; A6253; C9113; G0378; J1170; J1650; J1815; J1885; J2060; J2405; J3475; J7030